=== PATIENT | male | born 1970 | race Hispanic/Latino ===

== ENCOUNTER 2017-08-13 08:51 | Emergency (ER) | payer BC ==
[2017-08-13] MEDS ORDERED: DIAZEPAM 5 MG TABLET ONE (09:17)
[2017-08-13 09:43] LABS: EOSINOPHILS % (AUTO) 3.6 % (0.0-8.0); LYMPHOCYTES % (AUTO) 18.4 % (21.0-51.0); MEAN CORPUSCULAR HEMOGLOBIN 27.7 pg (27.0-33.0); MEAN CORPUSCULAR HGB CONC 33.3 g/dL (32.0-36.0); MEAN CORPUSCULAR VOLUME 83.1 fL (79-99); MONOCYTES % (AUTO) 5.9 % (3.0-13.0); NEUTROPHILS % (AUTO) 71.1 % (40.0-77.0); PLATELET COUNT (AUTO) 141 K/uL (130-400); RED BLOOD CELL COUNT(AUTO) 5.53 MIL/uL (4.50-6.20); RED CELL DISTRIBUTION WIDTH 13.6 % (11.0-15.5); WHITE BLOOD COUNT (AUTO) 8.2 K/uL (4.8-10.8)
[2017-08-13 09:47] LABS: CREATININE 0.8 mg/dL (0.5-1.5); POTASSIUM 3.6 mmol/L (3.5-5.1)
[2017-08-13] MEDS ORDERED: KETOROLAC TROMETHAMINE 60 MG/2 ML VIAL ONE (10:43)
== END 2017-08-13 11:22 | disposition home or self-care (01) ==
LOC: EDH 08:51
DX: M51.26 Other intervertebral disc displacement, lumbar region (principal); E11.9 Type 2 diabetes mellitus without complications
CPT/HCPCS: 36415; 72131; 80048; 85025; 96372; 99285; J1885